=== PATIENT | male | born 1995 | race Caucasian/White ===

== ENCOUNTER 2016-12-27 03:34 | Day surgery (SDC) | payer OTHER ==
[2016-12-27] MEDS ORDERED: NS 0.9% 1000 ML* 1,000 ML IV ONE (04:35)
[2016-12-27 05:09] LABS: Hematocrit 45 % (42-52); Hemoglobin 15.3 g/dl (14.0-18.0); Mean Corpuscular HGB Conc 34 g/dl (31-36); Mean Corpuscular Hemoglobin 31 pg (27-31); Mean Corpuscular Volume 91 fL (80-94); Mean Platelet Volume 7 um3 (7.4-10.4); Red Blood Count 4.93 10^6/ul (4.0-5.4); Red Cell Distribution Width 13 % (10.5-15); White Blood Count 15.9 10^3/ul (3.5-10.8)
[2016-12-27 05:18] LABS: ALT 12 U/L (7-52); AST 16 U/L (13-39); Albumin 4.4 g/dL (3.2-5.2); Alkaline Phosphatase 64 U/L (34-104); Anion Gap 4 mmol/L (2-11); BUN/Creatinine Ratio 12.9 (8-20); Blood Urea Nitrogen 13 mg/dL (6-24); C Reactive Protein < 1.00 mg/L (< 5.00); CO2 Carbon Dioxide 31 mmol/L (22-32); Calcium 9.2 mg/dL (8.6-10.3); Chloride 102 mmol/L (101-111); EGFR African American 118.8 (>60); EGFR Non-African American 92.4 (>60); Globulin 2.5 g/dL (2-4); Glucose 117 mg/dL (70-100); Lipase 22 U/L (11.0-82.0); Potassium 3.8 mmol/L (3.5-5.0); Sodium 137 mmol/L (133-145); Total Protein 6.9 g/dL (6.4-8.9)
[2016-12-27] MEDS ORDERED: Iohexol 300* (CONTRAST) 10 ML SDV IV ONE (05:59)
[2016-12-27 07:02] LABS: Urine Bacteria Absent (Absent); Urine Bilirubin Negative (Negative); Urine Glucose Negative (Negative); Urine Nitrite Negative (Negative)
--- NOTE | 2016-12-27 07:02 | ED ---
Karen Ramos Rebecca, scribed for Jose Luis Dacosta MD on 12/27/16 at 0444 . Abdominal Pain/Male - HPI Summary HPI Summary: Pt is a 21 y/o M who presents to ED c/o abdominal pain. Sx began this morning at 0000 while laying down. Pain is in the umbilical and RLQ regions with no radiation to the testicles and back. Upon triage, pain was noted to be moderate , ranked 4/10 but pain is now resolved, only present to palpation. Sx aggravated by palpation and movements of the car, alleviated by nothing. Additionally c/o nausea and chills. Denies V/D and back pain. Confirms his appetite was normal yesterday. Prior similar but worse episode during which he had a lot of air and sx were resolved by a laxative. - History of Current Complaint Chief Complaint: EDAbdPain Stated Complaint: ABD PAIN Time Seen by Provider: 12/27/16 04:24 Hx Obtained From: Patient Onset/Duration: Resolved Severity Initially: Moderate - 4/10 Pain Intensity: 0 Pain Scale Used: 0-10 Numeric Location: Discrete At: RLQ, Umbilical Aggravating Factor(s): Other: - Movements of the car, palpatoin Alleviating Factor(s): Nothing Associated Signs And Symptoms: Positive: Nausea. Negative: Back Pain, Vomiting , Diarrhea - Allergies/Home Medications Allergies/Adverse Reactions: Allergies Allergy/AdvReac Type Severity Reaction Status Date / Time No Known Allergies Allergy Verified 12/27/16 03:40 PMH/Surg Hx/FS Hx/Imm Hx Cardiovascular History: Denies: Hx Hypertension Respiratory History: Denies: Hx Asthma Infectious Disease History: No Infectious Disease History: Denies: Traveled Outside the [place] in Last 30 Days - Family History Known Family History: Negative: Cardiac Disease, Hypertension, Diabetes - Social History Occupation: Student Alcohol Use: Occasionally Substance Use Type: Reports: None Smoking Status (MU): Never Smoked Tobacco Review of Systems Positive: Chills Positive: Abdominal Pain - Umbilical and RLQ, Nausea. Negative: Vomiting, Diarrhea Positive: Other - NEGATIVE: back pain All Other Systems Reviewed And Are Negative: Yes Physical Exam - Summary Physical Exam Summary: The patient is well-nourished in no acute distress and in no acute pain. The skin is warm and dry and skin color reflects adequate perfusion. Good skin turgor. HEENT: The head is normocephalic and atraumatic. The pupils are equal and reactive. The conjunctivae are clear and without drainage. Nares are patent and without drainage. Mouth reveals moist mucous membranes and the throat is without erythema and exudate. The external ears are intact. The ear canals are patent and without drainage. The R TM was not visualized. The L TM appears within normal limits. Neck is supple with full range of motion and non-tender. There are no carotid bruits. There is no neck vein distension. Respiratory: Chest is non-tender. Lungs are clear to auscultation and breath sounds are symmetrical and equal. Cardiovascular: Hear is regular rate and rhythm. There is no murmur or rub auscultated. There is no peripheral edema and pulses are symmetrical and equal. Abdomen: The abdomen is soft and tender over McBurney's point with no tenderness anywhere else. No tenderness with percussion of theheel or flexion of his legs. There are normal bowel sounds heard in all four quadrants and there is no organomegaly palpated. Musculoskeletal: There is no back pain noted. There is no CVA tenderness. Extremities are non-tender with full range of motion. There is good capillary refill. Good pulses disatally. Neurological: Patient is alert and oriented to person, place and time. The patient has symmetrical motor strength in all four extremities. Psychiatric: The patient has an appropriate affect and does not exhibit any anxiety or depression. Triage Information Reviewed: Yes Vital Signs On Initial Exam: Initial Vitals Temp Pulse Resp BP Pulse Ox 98.4 F 81 15 124/67 97 12/27/16 03:37 12/27/16 03:37 12/27/16 03:37 12/27/16 03:37 12/27/16 03:37 Vital Signs Reviewed: Yes Diagnostics - Vital Signs Vital Signs Temp Pulse Resp BP Pulse Ox 12/27/16 03:37 98.4 F 81 15 124/67 97 - Laboratory Lab Results: Lab Results 12/27/16 12/27/16 12/27/16 Range/Units 04:35 04:35 04:35 WBC 15.9 H (3.5-10.8) 10^3/ul RBC 4.93 (4.0-5.4) 10^6/ul Hgb 15.3 (14.0-18.0) g/dl Hct 45 (42-52) % MCV 91 (80-94) fL MCH 31 (27-31) pg MCHC 34 (31-36) g/dl RDW 13 (10.5-15) % Plt Count 295 (150-450) 10^3/ul MPV 7 L (7.4-10.4) um3 Neut % (Auto) 83.0 (38-83) % Lymph % (Auto) 8.0 L (25-47) % Hand % (Auto) 8.1 (1-9) % Eos % (Auto) 0.8 (0-6) % Baso % (Auto) 0.1 (0-2) % Absolute Neuts (auto) 13.2 H (1.5-7.7) 10^3/ul Absolute Lymphs (auto) 1.3 (1.0-4.8) 10^3/ul Absolute Monos (auto) 1.3 H (0-0.8) 10^3/ul Absolute Eos (auto) 0.1 (0-0.6) 10^3/ul Absolute Basos (auto) 0 (0-0.2) 10^3/ul Absolute Nucleated RBC 0 10^3/ul Nucleated RBC % 0 Sodium 137 (133-145) mmol/L Potassium 3.8 (3.5-5.0) mmol/L Chloride 102 (101-111) mmol/L Carbon Dioxide 31 (22-32) mmol/L Anion Gap 4 (2-11) mmol/L BUN 13 (6-24) mg/dL Creatinine 1.01 (0.67-1.17) mg/dL Est GFR ( Amer) 118.8 (>60) Est GFR (Non-Af Amer) 92.4 (>60) BUN/Creatinine Ratio 12.9 (8-20) Glucose 117 H (70-100) mg/dL Lactic Acid 0.9 (0.5-2.0) mmol/L Calcium 9.2 (8.6-10.3) mg/dL Total Bilirubin 0.50 (0.2-1.0) mg/dL AST 16 (13-39) U/L ALT 12 (7-52) U/L Alkaline Phosphatase 64 (34-104) U/L C-Reactive Protein < 1.00 (< 5.00) mg/L Total Protein 6.9 (6.4-8.9) g/dL Albumin 4.4 (3.2-5.2) g/dL Globulin 2.5 (2-4) g/dL Albumin/Globulin Ratio 1.8 (1-3) Lipase 22 (11.0-82.0) U/L Result Diagrams: 12/27/16 04:35 12/27/16 04:35 Lab Statement: Any lab studies that have been ordered have been reviewed, and results considered in the medical decision making process. - CT CT Abd/Pel CT Interpretation Completed By: Radiologist - Pending radiologist interpretation. See [facility] for radiologist read. Abdominal Pain Fem Course/Dx - Course Assessment/Plan: Pt is a 21 y/o M who presents to ED c/o abdominal pain. Sx began this morning at 0000 while laying down. Pain is in the umbilical and RLQ regions with no radiation to the testicles and back. Upon triage, pain was noted to be moderate, ranked 4/10 but pain is now resolved, only present to palpation. Sx aggravated by palpation and movements of the car, alleviated by nothing. Additionally c/o nausea and chills. Denies V/D and back pain. Confirms his appetite was normal yesterday. Prior similar but worse episode during which he had a lot of air and sx were resolved by a laxative. WBC of 15.9. Pt will be signed out to Dr. Cervantes, pending disposition, awaiting CT Abd/Pel. - Diagnoses Differential Diagnosis/HQI/PQRI: Appendicitis, Renal Colic Provider Diagnoses: Abdominal pain Discharge - Discharge Plan Condition: Stable Disposition: OTHER Discharge Disposition Comment: Pt will be signed out, prending disposition, awaiting [facility] Referrals: On [facility] Of [facility] [Primary Care Provider] - The documentation as recorded by the Karen gee Rebecca accurately reflects the service I personally performed and the decisions made by , Jose Luis Dacosta MD.
--- NOTE | 2016-12-27 09:11 | RAD ---
INDICATION: Right lower quadrant pain. Contrast: Administered 95.2 ml of OMNIPAQUE 300 mg/ml CT of the abdomen and pelvis was performed after oral and IV contrast administration. Coronal and sagittal reconstructed images were obtained. The lung bases demonstrate no pleural fluid, nodules or masses. Heart is of normal size without evidence of pericardial effusion. The liver is normal in size. No focal lesions or intrahepatic duct dilatation is noted. The pancreas demonstrates no mass or pancreatic duct dilatation. The spleen is normal in size. No adrenal lesions are noted. The kidneys demonstrate symmetric nephrograms without evidence of focal lesions. No retroperitoneal lymphadenopathy is noted. No dilated loops of bowel are noted. CT of the pelvis demonstrates the colon to be filled with stool. No dilated loops of bowel are noted. No free fluid is identified. No hernias are identified. There is borderline enlarged appendix measuring up to 7 to 8 mm, especially with fluid in the distal tip. Appendicitis of the distal tip cannot be excluded and clinical correlation is suggested. No dilated loops of bowel are noted. The urinary bladder is unremarkable. IMPRESSION: There is a borderline enlarged appendix with mild enhancement of the distal tip of the appendix wall. Appendicitis of the distal tip should be considered. There is air in the lumen of the appendix.
--- NOTE | 2016-12-27 09:58 | CONSULT ---
Consult Consult: Mr. Silva presented on a previous shift with a good story for appendicitis. He was noted to have RLQ tenderness and a leukocytosis and was awaiting CT results at change of shift. His CT was concerning for appendicitis and Dr. Sr was contacted for admission. He will be admitted in stable condition with a diagnosis of appendicitis.
[2016-12-27] MEDS ORDERED: Ondansetron INJ* 2 MG/ML VIAL IV PRN ×2 (10:36→12:35)
[2016-12-27] MEDS ORDERED: HYDROmorphone* 1 MG/ML 1 ML SYR IV PRN (10:36)
[2016-12-27] MEDS ORDERED: ceFAZolin 2 GM PREMIX (*) 50 ML IVPB ONE (10:59)
[2016-12-27] MEDS ORDERED: KETAMINE HCL* 50 MG/ML 10 ML VIAL ONE (11:46)
[2016-12-27] MEDS ORDERED: Ondansetron INJ* 2 MG/ML VIAL ONE (11:46)
[2016-12-27] MEDS ORDERED: fentaNYL* 50 MCG/ML 2 ML VIAL (100 MCG VIAL) ONE ×2 (11:46→14:53)
[2016-12-27] MEDS ORDERED: Ketorolac INJ* 30 MG/ML 1 ML VIAL ONE (11:46)
[2016-12-27] MEDS ORDERED: Propofol* 10 MG/ML 20 ML BTL IV PUSH ONE (11:46)
[2016-12-27] MEDS ORDERED: Lidocaine 2% PF * 5 ML VIAL ONE (11:46)
[2016-12-27] MEDS ORDERED: Dexamethasone IV* 4 MG/ML 1 ML (4 MG) ONE (11:46)
[2016-12-27] MEDS ORDERED: Cisatracurium* 2 MG/ML MDV 5 ML ONE (11:46)
[2016-12-27] MEDS ORDERED: Midazolam* 1 MG/ML 5 ML VIAL (5 MG) ONE (11:46)
--- NOTE | 2016-12-27 11:56 | HP ---
ADMISSION HISTORY AND PHYSICAL: DATE OF ADMISSION: 12/27/16. PATIENT OF: Piyush Sr MD * (DICTATED BY JESSEE HERNÁNDEZ) REASON FOR ADMISSION: Abdominal pain. 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 He notes that his pain started roughly at midnight while lying down trying to sleep. He described it as a dull aching pain with sharp episode that was localized initially at the periumbilical area and eventually shifted to the right lower quadrant with no other radiation to the back or the testicles. The patient notes that his pain was moderate about 4 to 5/10 localized to the right lower quadrant with no radiation or associated nausea or vomiting. He notes that he had some chills last night and as well as some gas pain, but denies any changes in the bowel habits. He then eventually got better while he stayed in the ED overnight. He had laboratory work up that revealed leukocytosis with white count of 16,000. He also had a CT scan of the abdomen and pelvis that was consistent with possibility of early appendicitis with dilatation of the tip of the appendix noted. Given his ongoing symptoms and CT scan findings, we were asked to see the patient for further evaluation of possible appendicitis. PAST MEDICAL HISTORY: Essentially unremarkable. The patient reports occasional GERD symptoms for which he takes Tums or antacids as needed. He denies any history of heart, liver, lung, or kidney disease. PAST SURGICAL HISTORY: Significant for wisdom teeth extraction a few years ago. CURRENT MEDICATIONS: His medications at home include occasional Tums as needed for heartburn. ALLERGIES: He has no known drug allergies. FAMILY HISTORY: Noncontributory. SOCIAL HISTORY: The patient is a nonsmoker who drinks alcohol occasionally. 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 REVIEW OF SYSTEMS: See HPI, otherwise negative. He denies any headache, dizziness, blurred vision or double vision. No fever, but admits to chills. No recent weight loss. He denies any back pain, dysuria, flank pain, hematuria , or urinary frequency. He admits to right lower quadrant abdominal pain with associated chills. He denies any recent weight loss. PHYSICAL EXAMINATION GENERAL: He is a pleasant, healthy appearing young male, in no acute distress or discomfort at the time of admission. VITAL SIGNS: His vitals were stable. Recent set of vitals revealed temperature of 98.4, blood pressure 107/65, pulse of 55, O2 sat of 99% on room air. HEENT: Sclerae anicteric. PERRLA. EOMs intact. Oropharynx is pink, moist with no exudate. NECK: Supple. Trachea midline. No cervical adenopathy, thyromegaly, or JVD. LUNGS: Clear to auscultation bilaterally. There were no rales, wheezes, or rhonchi. HEART: Regular rate and rhythm. Normal S1 and S2 without rubs, murmurs, or gallops. BACK: Normal curvature. No CVA tenderness. ABDOMEN: Soft and nondistended. There is moderate right lower quadrant tenderness noted with moderate tenderness at McBurney's point. There is slight guarding and rebound tenderness as well. Prieto sign was negative. There were no hernias, masses, or hepatosplenomegaly. EXTREMITIES: Without cyanosis, clubbing, or edema. RECTAL: Deferred at this time. NEUROLOGIC: Grossly intact. LABORATORY DATA: Laboratory workup, the patient had CBC with white count of 16 ,000, hemoglobin of 15.3, hematocrit of 45, and platelets of 295. His chemistry was essentially within normal limits including LFTs, amylase, and lipase. ACCESSORY DIAGNOSTIC DATA: CT scan of the abdomen and pelvis was performed earlier this morning and revealed borderline enlarged appendix with some enhancement of the distal tip of the appendix wall consistent with possibility of early appendicitis. IMPRESSION: A 21-year-old gentleman with signs and symptoms as well as CT scan findings consistent with acute appendicitis. PLAN: Case was discussed with Dr. Sr and I went on discussed with the patient findings of his CT scan and physical exam. He appears to be have an acute appendicitis and he wishes to proceed with surgery. The patient has been n.p.o. and will be covered prophylactically with antibiotics and be likely taken to the OR later this afternoon in anticipation for laparoscopic appendectomy. The rationale indications, risks, and benefits of surgery were discussed with him today. Risks include but not limited to infection, bleeding , or injury to adjacent structures. He seems to understand and wishes to proceed as outlined. JESSEE HERNÁNDEZ [id number]/[facility] #: [id number] [facility]PITALAda
[2016-12-27] MEDS ORDERED: Famotidine IV* 10 MG/ML 2 ML (20 mg) ONE (11:59)
[2016-12-27] MEDS ORDERED: Bupivacaine 0.25% SDV* 30 ML ONE (12:20)
[2016-12-27] MEDS ORDERED: Famotidine IV* 10 MG/ML 2 ML (20 mg) IV SLOW PU ONE (12:30)
[2016-12-27] MEDS ORDERED: fentaNYL* 50 MCG/ML 2 ML VIAL (100 MCG VIAL) IV PRN (12:35)
[2016-12-27] MEDS ORDERED: oxyCODONE/Acetamin 5/325 MG* TAB PO PRN (12:35)
[2016-12-27] MEDS ORDERED: Neostigmine Methylsulfate* 2 MG/2 ML SYRINGE ONE (13:17)
[2016-12-27] MEDS ORDERED: Glycopyrrolate IV* 0.2 MG/ML 1 ML VIAL ONE (13:17)
[2016-12-27] MEDS ORDERED: oxyCODONE/Acetamin 5/325 MG* TAB ONE (17:16)
[2016-12-27 18:10] VITALS: BP 116/68
--- NOTE | 2016-12-28 04:23 | OP ---
CC: Dr. Sr; [facility] OPERATIVE REPORT: DATE OF OPERATION: 12/27/16 DATE OF : 89 SURGEON: Piyush Sr M.D. CHILDREN'S PROGRAM COORDINATOR: None. ANESTHESIOLOGIST: Dr. Montero. ANESTHESIA: General anesthetic, local infiltration. PRE-OP DIAGNOSIS: Appendicitis. POST-OP DIAGNOSIS: Appendicitis. OPERATIVE PROCEDURE: Laparoscopic appendectomy. DESCRIPTION OF PROCEDURE: The patient was supine on the operating room table. After adequate genera l anesthetic, compression stockings, Sherman Hugger warmer, and intravenous antibiotics, the abdomen wa s prepped with antiseptic, and draped in a sterile fashion. Local infiltrative anesthesia was admin istered. Small umbilical incision was created. Blunt port cannula was placed. Insulation was magallanes ied out with carbon dioxide, and additional cannula 5 mm left lower quadrant and left mid abdomen we re placed through small stab wounds under direct vision. The appendix was acutely inflamed with ear ly suppurative changes. The base was clean. The mesoappendix and the base of the appendix were div ided with a single firing of a 16- mm drew load EndoGIA stapler. This created excellent hemostasis. The appendix was placed in a retrieval bag and brought out through the umbilical site. Umbilical f ascia was closed with 0 Polysorb, skin with 5-0 Polysorb followed by Steri-Strips. He tolerated the procedure well. He was awakened and brought to recovery in good condition. There were no complicat ions. No drains. Pathologic specimen, appendix. Sponge and instrument counts correct. Estimated blood loss is less than 10 mL. [id number]/[facility] #: [id number]
== END 2016-12-27 20:03 | disposition home or self-care (01) ==
LOC: ED 03:34 → OR 11:53
PROVIDERS: ATTEND Surgery
DX: K35.80 Unspecified acute appendicitis (principal)
CPT/HCPCS: 36415; 74177; 80053; 81003; 81015; 83605; 83690; 85025; 86140; 87040; 88304; A9270-GY; J0690; J1100; J1885; J2250; J2405; J2704; J3010; Q9967